=== PATIENT | female | born 1950 | race Caucasian/White ===

== ENCOUNTER → 2019-12-10 | Outpatient (CLI) | payer OTHER ==
[~2019-12-10] MED LIST: ASACOL HD800 MG PO; FLEXERIL PO; LISINOPRIL20 MG PO; NORCO 5-325 TA1 EACH PO; SYNTHROID112 MCG PO
== END ==
LOC: CAT 12:38
PROVIDERS: ATTEND Internal Medicine
DX: Z12.2 Encounter for screening for malignant neoplasm of respiratory organs (principal); J84.10 Pulmonary fibrosis, unspecified; Z87.891 Personal history of nicotine dependence